=== PATIENT | male | born 1965 | race Caucasian/White ===

== ENCOUNTER 2024-07-14 03:46 | Emergency (ER) | payer OTHER ==
[~2024-07-14] VITALS: Ht 167.6 cm; Wt 91.0 kg
[2024-07-14 03:54] VITALS: O2SAT 98
[2024-07-14] MEDS: BACITRACIN ZINC OINT UDPKT TOP ONE (04:30)
[2024-07-14] MEDS: LIDOCAINE HCL/EPINEPHRINE 1%-EPI 1:100,000 20ML VIAL INFIL ONE (04:30)
[2024-07-14] MEDS ORDERED: ACET-2708 MT (05:30)
[2024-07-14] MEDS ORDERED: SULF1TAB48 MT (05:30)
[2024-07-14 05:35] VITALS: BP 117/81; PULSE 69; RESP 19; TEMP 36.89184; O2SAT 98
== END 2024-07-14 06:16 | disposition home or self-care (01) ==
LOC: ER 03:46
DX: L02.31 Cutaneous abscess of buttock (principal); Z90.49 Acquired absence of other specified parts of digestive tract
CPT/HCPCS: 87070; 87186; 87205; 10060; 99283; Z7610 ×5